=== PATIENT | male | born 1955 | race African-American/Black ===

== ENCOUNTER 2017-08-30 06:45 | Emergency (ER) | payer SELFPAY ==
--- NOTE | 2017-08-30 07:24 | ER Document Report ---
ED Headache - General Chief Complaint: Headache Stated Complaint: HEADACHE Time Seen by Provider: 08/30/17 07:24 Mode of Arrival: Ambulatory Information source: Patient Notes: 62-year-old male with a gradual onset of the right sided headache intermittent for 3 days. The pain starts in right posterior neck and goes all the way around to his right eye which torre. No visual changes. Similar headache 2 times in the past. He had a CT scan at [place] in 2013 which was negative. No fever. TRAVEL OUTSIDE OF THE [place] IN LAST 30 DAYS: No - Related Data Allergies/Adverse Reactions: Penicillins Allergy (Unverified 12/08/10 18:34) Past Medical History - General Information source: Patient - Social History Smoking Status: Current Every Day Smoker Frequency of alcohol use: Occasional Drug Abuse: None Lives with: Family Family History: Reviewed & Not Pertinent - Past Medical History Cardiac Medical History: Reports: Hx Hypertension Pulmonary Medical History: Reports: Hx Tuberculosis Surgical Hx: Negative Review of Systems - Review of Systems Constitutional: No symptoms reported EENT: No symptoms reported Cardiovascular: No symptoms reported Respiratory: No symptoms reported Gastrointestinal: No symptoms reported Genitourinary: No symptoms reported Male Genitourinary: No symptoms reported Musculoskeletal: No symptoms reported Skin: No symptoms reported Hematologic/Lymphatic: No symptoms reported Neurological/Psychological: See HPI Physical Exam - Vital signs Vitals: Temp Pulse Resp BP Pulse Ox 98.3 F 92 19 171/94 H 98 08/30/17 06:50 08/30/17 06:50 08/30/17 06:50 08/30/17 06:50 08/30/17 06:50 Interpretation: Normal - General General appearance: Appears well, Alert - HEENT Head: Normocephalic, Atraumatic Eyes: Normal Conjunctiva: Normal Extraocular movements intact: Yes Pupils: PERRL Pharynx: Normal Neck: Supple, Other - tender right occiptal muscle. No: Lymphadenopathy, Thyromegally - Respiratory Respiratory status: No respiratory distress Chest status: Nontender Breath sounds: Normal Chest palpation: Normal - Cardiovascular Rhythm: Regular Heart sounds: Normal auscultation Murmur: No - Abdominal Inspection: Normal Distension: No distension Bowel sounds: Normal Tenderness: Nontender Organomegaly: No organomegaly - Back Back: Normal, Nontender - Extremities General upper extremity: Normal inspection, Nontender, Normal color, Normal ROM , Normal temperature General lower extremity: Normal inspection, Nontender, Normal color, Normal ROM , Normal temperature, Normal weight bearing. No: Jose's sign - Neurological Neuro grossly intact: Yes Cognition: Normal Orientation: AAOx4 Archer Coma Scale Eye Opening: Spontaneous Archer Coma Scale Verbal: Oriented Archer Coma Scale Motor: Obeys Commands Jalyn Coma Scale Total: 15 Speech: Normal Motor strength normal: LUE, RUE, LLE, RLE Sensory: Normal - Psychological Associated symptoms: Normal affect, Normal mood - Skin Skin Temperature: Warm Skin Moisture: Dry Skin Color: Normal Skin irregularity: negative: Rash Course - Re-evaluation Re-evalutation: 08/30/17 08:[address] Peoples about this patient, no ct order at this time. I placed the patient on oxygen thinking this was a cluster migraine but he states oxygen did not help. Pain was down to 2/5 and now he is rolling around in the bed saying the pain is up to 4/5. Consult Dr. Peoples again who now recommends CT scan and Haldol 5 mg IV. 08/30/17 09:53 CT scan is negative. Pain level is 0 I will refer to neurologist. - Vital Signs Vital signs: Temp Pulse Resp BP Pulse Ox 97.6 F 73 14 136/81 H 98 08/30/17 11:48 08/30/17 11:48 08/30/17 11:48 08/30/17 11:48 08/30/17 11:48 Discharge - Discharge Clinical Impression: Right-sided headache Condition: Good Disposition: HOME, SELF-CARE Instructions: Acetaminophen, Intravenous Compazine for Headaches ([facility]), Use of Diphenhydramine, Headache ([facility]), Ibuprofen (General) ([facility]), Toradol Injection ( [facility]) Additional Instructions: return to er if headache worsens rest today drink plenty of fluids referral to neurologist Prescriptions: Ibuprofen [Motrin 800 mg Tablet] 800 mg PO Q8HP PRN #30 tablet PRN Reason: Referrals: LUCIA MORALES MD [NO LOCAL MD] - Follow up as needed
[2017-08-30] MEDS ORDERED: DIPHENHYDRAMINE HCL 50 MG/ML VIAL IV ONE (08:02)
[2017-08-30] MEDS ORDERED: KETOROLAC TROMETHAMINE 60 MG/2 ML SDV IV ONE (08:02)
[2017-08-30] MEDS ORDERED: PROCHLORPERAZINE EDISYLATE INJ 10 MG/2 ML VIAL IV ONE (08:02)
[2017-08-30] MEDS ORDERED: HALOPERIDOL LACTATE INJ 5 MG/1 ML VIAL IV ONE (08:50)
--- NOTE | 2017-08-30 09:19 | RADIOLOGY REPORT (SQ) ---
EXAM DESCRIPTION: CT HEAD WITHOUT COMPLETED DATE/TIME: 08/30/2017 9:11 am REASON FOR STUDY: right sided headache COMPARISON: 03/09/2013. TECHNIQUE: Axial images acquired through the brain without intravenous contrast. Images reviewed wi th bone, brain and subdural windows. Images stored on PACS. All CT scanners at this facility use dose modulation, iterative reconstruction, and/or weight based d osing when appropriate to reduce radiation dose to as low as reasonably achievable (ALARA). [facility]: Dose Right [facility]: CareDose [facility]: Dose Right [facility]: Teradose 4D [facility]: [employer] RADIATION DOSE: CT Rad equipment meets quality standard of care and radiation dose reduction techniq ues were employed. CTDIvol: 64.6 mGy. DLP: 1292 mGy-cm. mGy. LIMITATIONS: None. FINDINGS: VENTRICLES: Normal size and contour. CEREBRUM: No masses. No hemorrhage. No midline shift. No evidence for acute infarction. Normal gra y/white matter differentiation. No areas of low density in the white matter. CEREBELLUM: No masses. No hemorrhage. No alteration of density. No evidence for acute infarction. EXTRAAXIAL SPACES: No fluid collections. No masses. ORBITS AND GLOBE: No intra- or extraconal masses. Normal contour of globe without masses. CALVARIUM: No fracture. PARANASAL SINUSES: No fluid or mucosal thickening. SOFT TISSUES: No mass or hematoma. OTHER: No other significant finding. IMPRESSION: NORMAL BRAIN CT WITHOUT CONTRAST. EVIDENCE OF ACUTE STROKE: NO. COMMENT: Quality ID # [id number]: Final reports with documentation of one or more dose reduction techniques (e.g., Automated exposure control, adjustment of the mA and/or kV according to patient size, use of iterative reconstruction technique) TECHNICAL DOCUMENTATION: JOB ID: [id number] [employer]- All Rights Reserved Reading location - IP/workstation name: [email or web address]
[2017-08-30 11:48] VITALS: BP 136/81
== END 2017-08-30 11:43 | disposition home or self-care (01) ==
LOC: ER 06:45
DX: R51 Headache (principal); M54.2 Cervicalgia; H57.11 Ocular pain, right eye; F17.200 Nicotine dependence, unspecified, uncomplicated
CPT/HCPCS: 99284; 96374; 96375; 70450; J1200; J1885; J1630; J0780